=== PATIENT | male | born 1940 | race African-American/Black ===

== ENCOUNTER 2023-11-04 10:26 | Emergency (ER) | payer OTHER ==
[~2023-11-04] VITALS: Ht 180.3 cm; Wt 73.0 kg
[2023-11-04 10:28] VITALS: O2SAT 99
[2023-11-04 11:05] VITALS: TEMP 97.6
[2023-11-04 11:06] LABS: BASOPHILS % 0.3 % (0.0-2.0); EOSINOPHILS % 1.7 % (0.0-5.0); HEMATOCRIT. 28.8 % (42.0-52.0); HEMOGLOBIN. 9.2 g/dL (14.0-18.0); LYMPHOCYTES % 17.9 % (20.0-50.0); MEAN CORPUSCULAR HEMOGLOBIN 29.1 pg (28.0-32.0); MEAN CORPUSCULAR HGB CONC 32.1 g/dL (31.0-37.0); MEAN CORPUSCULAR VOLUME 90.8 fL (80.0-94.0); MEAN PLATELET VOLUME 7.2 fl (7.4-10.4); MONOCYTES % 7.6 % (2.0-8.0); NEUTROPHILS % 72.5 % (40.0-76.0); PLATELET 257 x1000/uL (130-400); RED BLOOD CELL COUNT 3.17 mill/uL (4.7-6.1); RED CELL DISTRIBUTION WIDTH 15.8 % (11.6-14.6); WHITE BLOOD COUNT 5.8 x1000/uL (4.5-11.0)
[2023-11-04 11:28] LABS: ALANINE AMINOTRANSFERASE < 7 IU/L (10-49); ALBUMIN 4.3 g/dL (3.2-4.8); ASPARTATE AMINOTRANSFERASE 15 IU/L (<34); BILIRUBIN TOTAL 0.2 mg/dL (0.1-1.0); CARBON DIOXIDE 26 mEq/L (21-32); CHLORIDE 102 mEq/L (98-107); CREATININE 1.3 mg/dL (0.6-1.3); GLUCOSE 143 mg/dL (70-105); POTASSIUM 4.5 mEq/L (3.5-5.1); PROTEIN TOTAL 7.1 g/dL (6.0-8.3); SODIUM 135 mEq/L (136-145); TROPONIN I HIGH SENSITIVITY 22 ng/L (3.0-53); UREA NITROGEN BLOOD 17 mg/dL (9-23)
[2023-11-04] MEDS: MORPHINE SULFATE 2 MG/ML CPJ (NOT FOR IM USE) IV ONE (12:15)
[2023-11-04 13:35] LABS: TROPONIN I HIGH SENSITIVITY 23 ng/L (3.0-53)
[2023-11-04 14:47] VITALS: BP 142/91; PULSE 91; RESP 15
== END 2023-11-04 14:53 | disposition short-term general hospital (02) ==
LOC: ER 10:43 → EDBEDREQ 10:52 → CANBEDREQ 12:23 → ER 14:53
DX: R07.89 Other chest pain (principal); R42 Dizziness and giddiness; R06.02 Shortness of breath; I48.91 Unspecified atrial fibrillation; E11.9 Type 2 diabetes mellitus without complications; I10 Essential (primary) hypertension; I25.2 Old myocardial infarction
CPT/HCPCS: 36415; 71045; 80053; 82962; 83880; 84484; 85025; 93005; 99285

== ENCOUNTER 2024-02-11 07:50 | Inpatient (IN) | payer OTHER ==
[~2024-02-11] VITALS: Ht 167.6 cm; Wt 57.4 kg
[2024-02-11 07:53] VITALS: O2SAT 100
[2024-02-11 08:35] LABS: BASOPHILS % 0.4 % (0.0-2.0); EOSINOPHILS % 1.3 % (0.0-5.0); HEMATOCRIT. 30.3 % (42.0-52.0); HEMOGLOBIN. 9.7 g/dL (14.0-18.0); LYMPHOCYTES % 9.3 % (20.0-50.0); MEAN CORPUSCULAR VOLUME 93.9 fL (80.0-94.0); MEAN PLATELET VOLUME 6.8 fl (7.4-10.4); MONOCYTES % 6.5 % (2.0-8.0); NEUTROPHILS % 82.5 % (40.0-76.0); PLATELET 307 x1000/uL (130-400); RED BLOOD CELL COUNT 3.23 mill/uL (4.7-6.1); RED CELL DISTRIBUTION WIDTH 15.4 % (11.6-14.6); WHITE BLOOD COUNT 6.4 x1000/uL (4.5-11.0)
[2024-02-11 08:47] LABS: CHLORIDE 102 mEq/L (98-107); POTASSIUM 4.7 mEq/L (3.5-5.1); SODIUM 136 mEq/L (136-145)
[2024-02-11 08:48] LABS: CARBON DIOXIDE 26 mEq/L (21-32)
[2024-02-11 08:49] LABS: CALCIUM 9.7 mg/dL (8.7-10.4)
[2024-02-11] MEDS: METOCLOPRAMIDE HCL 10MG/2ML VIAL IV ONE (08:52)
[2024-02-11 08:53] LABS: GLUCOSE 169 mg/dL (70-105); UREA NITROGEN BLOOD 16 mg/dL (9-23)
[2024-02-11] MEDS: KETOROLAC 30MG/ML VIAL IV ONE (08:53)
[2024-02-11 08:56] LABS: TROPONIN I HIGH SENSITIVITY 21 ng/L (3.0-53)
[2024-02-11 11:06] LABS: TROPONIN I HIGH SENSITIVITY 22 ng/L (3.0-53)
[2024-02-11] MEDS: METOPROLOL SUCCINATE 50MG ER TABLET PO STA (13:20)
[2024-02-11] MEDS ORDERED: AMLODIPINE 10MG TABLET PO ONE (14:45)
[2024-02-11] MEDS: AMLODIPINE 5MG TABLET PO NR (15:10)
[2024-02-11 20:00] VITALS: BP 172/82; PULSE 114; RESP 20; TEMP 98.1
[2024-02-11 20:18] VITALS: BP 172/82; PULSE 114; RESP 20; TEMP 98.1
[2024-02-11] MEDS ORDERED: METO25TA6 PO (20:28)
[2024-02-11] MEDS ORDERED: TERA2CAP4 MT (20:28)
[2024-02-11] MEDS ORDERED: CARSR60 PO (20:28)
[2024-02-11] MEDS ORDERED: DORZ10DR8 BOTHEYE (20:28)
[2024-02-11] MEDS ORDERED: ASPI-1079 PO (20:28)
[2024-02-11] MEDS ORDERED: APIX5TAB MT (20:28)
[2024-02-11] MEDS ORDERED: METF-414 MT (20:28)
[2024-02-11] MEDS ORDERED: CYAN-50 MT (20:28)
[2024-02-11] MEDS ORDERED: OMEP20CA14 MT (20:28)
[2024-02-11] MEDS ORDERED: NITR0.4T49 SL (20:28)
[2024-02-11] MEDS ORDERED: MAGN500C4 MT (20:28)
[2024-02-11] MEDS ORDERED: FURO20TA4 MT (20:28)
[2024-02-11] MEDS ORDERED: MONT-39 MT (20:28)
[2024-02-11] MEDS ORDERED: ATOR40TA70 MT (20:28)
[2024-02-11] MEDS ORDERED: GABA-529 MT (20:28)
[2024-02-11] MEDS ORDERED: LATA2.5D14 EACHEYE (21:28)
[2024-02-11] MEDS ORDERED: ONDANSETRON HCL 4MG/2ML INJ IV PRN (21:30)
[2024-02-11] MEDS ORDERED: MAGNESIUM/ALUMINUM HYDROXIDE/SIMETHICONE 30ML UDC PO PRN (21:30)
[2024-02-11] MEDS ORDERED: ACETAMINOPHEN 325MG TABLET PO PRN (21:30)
[2024-02-11] MEDS ORDERED: IPRATROPIUM/ALBUTEROL 0.5-3(2.5)MG/3ML NEB HHN PRN (21:30)
[2024-02-11] MEDS ORDERED: GUAIFENESIN 200MG/10ML SUGAR FREE UDC PO PRN (21:30)
[2024-02-11 22:10] VITALS: BP 165/87; PULSE 108
[2024-02-11] MEDS ORDERED: DEXTROSE 50% WATER 50ML SYRINGE IV PRN (22:15)
[2024-02-11] MEDS: ACETAMINOPHEN 325MG TABLET PO PRN (22:27)
[2024-02-11] MEDS: CLONIDINE 0.1MG TABLET PO PRN (22:27)
[2024-02-11] MEDS: DILTIAZEM HCL 60MG TABLET PO SCH (22:30)
[2024-02-11] MEDS: APIXABAN 5 MG TABLET PO SCH (22:30)
[2024-02-11] MEDS: METOPROLOL TARTRATE 25MG TABLET PO SCH (23:00)
[2024-02-11] MEDS: GABAPENTIN 100MG CAPSULE PO SCH (23:08)
[2024-02-11] MEDS: DOCUSATE SODIUM 100MG CAPSULE PO PRN (23:08)
[2024-02-11] MEDS: DORZOLAMIDE 2% OPHTH 10 ML BOTTLE BOTHEYE SCH (23:09)
[2024-02-12] VITALS: BP 108/64; PULSE 84; RESP 19; TEMP 97.9
[2024-02-12 00:42] LABS: HEMOGLOBIN 8.8 g/dL (14.0-18.0); MEAN CORPUSCULAR HGB CONC 32.7 g/dL (31.0-37.0); MEAN CORPUSCULAR VOLUME 91.7 fL (80.0-94.0); PLATELET 284 x1000/uL (130-400); RED BLOOD CELL COUNT 2.94 mill/uL (4.7-6.1); WHITE BLOOD COUNT 4.8 x1000/uL (4.5-11.0)
[2024-02-12 00:49] LABS: CHLORIDE 106 mEq/L (98-107); POTASSIUM 4.3 mEq/L (3.5-5.1); SODIUM 138 mEq/L (136-145)
[2024-02-12 00:50] LABS: CALCIUM 8.9 mg/dL (8.7-10.4); CARBON DIOXIDE 25 mEq/L (21-32)
[2024-02-12 00:55] LABS: CREATININE 0.9 mg/dL (0.6-1.3); GLUCOSE 121 mg/dL (70-105); TRIGLYCERIDE 79 mg/dL (0-150); TROPONIN I HIGH SENSITIVITY 39 ng/L (3.0-53); UREA NITROGEN BLOOD 12 mg/dL (9-23)
[2024-02-12 00:56] LABS: LDL CHOLESTEROL 58 mg/dL (5-100)
[2024-02-12 00:57] LABS: CHOLESTEROL 115 mg/dL (<200); CREATINE KINASE 20 IU/L (46-171); HDL CHOLESTEROL 37 mg/dL (>55); PHOSPHORUS 4.1 mg/dL (2.5-4.9)
[2024-02-12 00:59] LABS: T4 FREE 0.91 ng/dL (0.89-1.76); THYROID STIMULATING HORMONE 4.61 uIU/mL (0.55-4.78)
[2024-02-12 04:00] VITALS: BP 110/59; PULSE 81; RESP 18; TEMP 97.5
[2024-02-12 05:32] LABS: CHLORIDE 106 mEq/L (98-107); POTASSIUM 4.2 mEq/L (3.5-5.1); SODIUM 138 mEq/L (136-145)
[2024-02-12 05:33] LABS: CARBON DIOXIDE 25 mEq/L (21-32)
[2024-02-12 05:34] LABS: CALCIUM 9.4 mg/dL (8.7-10.4)
[2024-02-12 05:37] LABS: TROPONIN I HIGH SENSITIVITY 35 ng/L (3.0-53)
[2024-02-12 05:38] LABS: CREATININE 0.8 mg/dL (0.6-1.3); GLUCOSE 116 mg/dL (70-105)
[2024-02-12 05:39] LABS: UREA NITROGEN BLOOD 12 mg/dL (9-23)
[2024-02-12 05:40] LABS: CREATINE KINASE 23 IU/L (46-171)
[2024-02-12 05:41] LABS: PHOSPHORUS 4.3 mg/dL (2.5-4.9)
[2024-02-12 06:21] LABS: BASOPHILS % 0.6 % (0.0-2.0); EOSINOPHILS % 5.1 % (0.0-5.0); HEMATOCRIT. 27.5 % (42.0-52.0); HEMOGLOBIN. 9.1 g/dL (14.0-18.0); LYMPHOCYTES % 14.2 % (20.0-50.0); MEAN CORPUSCULAR HEMOGLOBIN 30.5 pg (28.0-32.0); MEAN CORPUSCULAR HGB CONC 33.1 g/dL (31.0-37.0); MEAN CORPUSCULAR VOLUME 92.1 fL (80.0-94.0); MEAN PLATELET VOLUME 7.1 fl (7.4-10.4); MONOCYTES % 10.6 % (2.0-8.0); NEUTROPHILS % 69.5 % (40.0-76.0); PLATELET 277 x1000/uL (130-400); RED BLOOD CELL COUNT 2.98 mill/uL (4.7-6.1); WHITE BLOOD COUNT 3.8 x1000/uL (4.5-11.0)
[2024-02-12] MEDS: BLOOD SUGAR DIAGNOSTIC STRIP TEST SCH (06:40)
[2024-02-12] MEDS: INSULIN LISPRO 100 UNITS/ML SUBCUT SCH (07:34)
[2024-02-12 08:00] VITALS: BP 126/69; PULSE 87; RESP 20; TEMP 98.1
[2024-02-12] MEDS: OMEPRAZOLE 20MG CAPSULE EXTENDED RELEASE PO SCH (08:51)
[2024-02-12] MEDS: FUROSEMIDE 20MG TABLET PO SCH (08:51)
[2024-02-12] MEDS: ASPIRIN 81MG TABLET PO SCH (08:51)
[2024-02-12] MEDS: CYANOCOBALAMIN 1000MCG TABLET PO SCH (08:51)
[2024-02-12 12:00] VITALS: BP 108/58; PULSE 74; RESP 17; TEMP 96.9
[2024-02-12 16:00] VITALS: BP 117/60; PULSE 80; RESP 18; TEMP 97.2
[2024-02-12] MEDS: MONTELUKAST SODIUM 10MG TABLET PO SCH (18:52)
[2024-02-12 20:00] VITALS: BP 112/67; PULSE 100; RESP 18; TEMP 97.2
[2024-02-12] MEDS: ATORVASTATIN CALCIUM 40MG TABLET PO SCH (21:07)
[2024-02-12] MEDS: LATANOPROST 0.005% OPHTH DROPS 2.5ML EACHEYE SCH (21:08)
[2024-02-12] MEDS: TERAZOSIN HCL 1MG CAPSULE PO SCH (21:15)
[2024-02-13] VITALS: BP 116/62; PULSE 64; RESP 18; TEMP 98.9
== END 2024-02-13 00:30 | disposition short-term general hospital (02) | DRG 305 ==
LOC: ER 07:50 → CANBEDREQ 11:14 → ER 17:57 → 7WST 18:39
PROVIDERS: ADMIT Preventive Medicine Clinical Informatics; ATTEND Preventive Medicine Clinical Informatics
DX: I16.0 Hypertensive urgency (principal); I20.0 Unstable angina; D64.9 Anemia, unspecified; E11.9 Type 2 diabetes mellitus without complications; I11.0 Hypertensive heart disease with heart failure; I50.9 Heart failure, unspecified; Z85.118 Personal history of other malignant neoplasm of bronchus and lung; I48.91 Unspecified atrial fibrillation; Z86.718 Personal history of other venous thrombosis and embolism; Z87.891 Personal history of nicotine dependence; Z95.828 Presence of other vascular implants and grafts; Z79.01 Long term (current) use of anticoagulants; Z79.82 Long term (current) use of aspirin; Z79.84 Long term (current) use of oral hypoglycemic drugs; Z79.899 Other long term (current) drug therapy
CPT/HCPCS: 36415; 71045; 80048; 80061; 82550; 82962; 83036; 83735; 83880; 84100; 84439; 84443; 84484; 85025; 85027; 93005; 93970; 99285; J1815; J1885; J2765

== ENCOUNTER 2024-02-22 08:05 | Emergency (ER) | payer OTHER ==
[~2024-02-22] VITALS: Ht 175.3 cm; Wt 69.0 kg
[~2024-02-22 08:05] MED LIST: APIX5TAB MT; ASPI-1079 PO; ATOR40TA70 MT; CARSR60 PO; CYAN-50 MT; DORZ10DR8 BOTHEYE; FURO20TA4 MT; GABA-529 MT; LATA2.5D14 EACHEYE; MAGN500C4 MT; METF-414 MT; METO25TA6 PO; MONT-39 MT; NITR0.4T49 SL; OMEP20CA14 MT; TERA2CAP4 MT
[2024-02-22 08:12] VITALS: BP 114/60; PULSE 105; RESP 18; TEMP 98.6; O2SAT 98
[2024-02-22 08:48] LABS: BASOPHILS % 0.4 % (0.0-2.0); EOSINOPHILS % 1.5 % (0.0-5.0); HEMATOCRIT. 29.2 % (42.0-52.0); HEMOGLOBIN. 9.3 g/dL (14.0-18.0); LYMPHOCYTES % 15.4 % (20.0-50.0); MEAN CORPUSCULAR HEMOGLOBIN 29.4 pg (28.0-32.0); MEAN PLATELET VOLUME 6.8 fl (7.4-10.4); MONOCYTES % 7.2 % (2.0-8.0); NEUTROPHILS % 75.5 % (40.0-76.0); PLATELET 315 x1000/uL (130-400); RED BLOOD CELL COUNT 3.17 mill/uL (4.7-6.1); RED CELL DISTRIBUTION WIDTH 14.9 % (11.6-14.6); WHITE BLOOD COUNT 7.4 x1000/uL (4.5-11.0)
[2024-02-22 08:50] LABS: CARBON DIOXIDE 24 mEq/L (21-32); CHLORIDE 104 mEq/L (98-107); POTASSIUM 4.2 mEq/L (3.5-5.1); SODIUM 137 mEq/L (136-145)
[2024-02-22 08:51] LABS: CALCIUM 9.9 mg/dL (8.7-10.4)
[2024-02-22 08:55] LABS: CREATININE 1.1 mg/dL (0.6-1.3)
[2024-02-22 08:56] LABS: GLUCOSE 199 mg/dL (70-105); UREA NITROGEN BLOOD 23 mg/dL (9-23)
[2024-02-22 08:57] LABS: ALANINE AMINOTRANSFERASE < 7 IU/L (10-49); ASPARTATE AMINOTRANSFERASE 18 IU/L (<34)
[2024-02-22 08:58] LABS: BILIRUBIN TOTAL 0.2 mg/dL (0.1-1.0); PROTEIN TOTAL 6.6 g/dL (6.0-8.3)
[2024-02-22 10:50] LABS: BILIRUBIN DIRECT < 0.1 mg/dL (<=3.0)
[2024-02-22] MEDS ORDERED: POLY119P2 MT (14:34)
[2024-02-22] MEDS ORDERED: FEO PR (14:34)
== END 2024-02-22 14:55 | disposition home or self-care (01) ==
LOC: ER 08:05
DX: K59.00 Constipation, unspecified (principal); I25.2 Old myocardial infarction; I10 Essential (primary) hypertension; E11.9 Type 2 diabetes mellitus without complications; I48.91 Unspecified atrial fibrillation; Z88.5 Allergy status to narcotic agent; Z79.899 Other long term (current) drug therapy
CPT/HCPCS: 36415; 74018; 74176; 80048; 80076; 85025; 99284

== ENCOUNTER 2024-03-02 20:20 | Emergency (ER) | payer OTHER ==
[~2024-03-02] VITALS: Ht 170.2 cm; Wt 59.0 kg
[~2024-03-02 20:20] MED LIST changes: +FEO PR; +POLY119P2 MT
[2024-03-02 20:42] VITALS: O2SAT 95
[2024-03-02] MEDS: SODIUM CHLORIDE 0.9% 1,000 ML IV ONE (21:55)
[2024-03-02] MEDS: ACETAMINOPHEN 325MG TABLET PO ONE (21:55)
[2024-03-02] MEDS: ONDANSETRON HCL 4MG/2ML INJ IV STA (21:55)
[2024-03-02 21:57] LABS: BASOPHILS % 0.5 % (0.0-2.0); EOSINOPHILS % 1.9 % (0.0-5.0); HEMATOCRIT. 30.1 % (42.0-52.0); HEMOGLOBIN. 9.7 g/dL (14.0-18.0); LYMPHOCYTES % 18.8 % (20.0-50.0); MEAN CORPUSCULAR HEMOGLOBIN 29.7 pg (28.0-32.0); MEAN CORPUSCULAR HGB CONC 32.1 g/dL (31.0-37.0); MEAN CORPUSCULAR VOLUME 92.6 fL (80.0-94.0); MONOCYTES % 10.9 % (2.0-8.0); NEUTROPHILS % 67.9 % (40.0-76.0); PLATELET 305 x1000/uL (130-400); RED BLOOD CELL COUNT 3.26 mill/uL (4.7-6.1); RED CELL DISTRIBUTION WIDTH 15.1 % (11.6-14.6); WHITE BLOOD COUNT 6.4 x1000/uL (4.5-11.0)
[2024-03-02 22:03] LABS: CHLORIDE 110 mEq/L (98-107); POTASSIUM 3.5 mEq/L (3.5-5.1); SODIUM 142 mEq/L (136-145)
[2024-03-02 22:04] LABS: CARBON DIOXIDE 22 mEq/L (21-32)
[2024-03-02 22:05] LABS: CALCIUM 7.8 mg/dL (8.7-10.4)
[2024-03-02 22:06] LABS: D-DIMER 3.65 mg/L FEU (<0.50); PARTIAL THROMBOPLASTIN TIME 25.5 sec (23.4-31.0); PROTHROMBIN TIME 10.8 sec (9.6-11.0)
[2024-03-02 22:09] LABS: CREATININE 0.7 mg/dL (0.6-1.3); GLUCOSE 93 mg/dL (70-105)
[2024-03-02 22:10] LABS: TROPONIN I HIGH SENSITIVITY 23 ng/L (3.0-53); UREA NITROGEN BLOOD 18 mg/dL (9-23)
[2024-03-02 22:11] LABS: ALANINE AMINOTRANSFERASE < 7 IU/L (10-49); ASPARTATE AMINOTRANSFERASE 14 IU/L (<34)
[2024-03-02 22:12] LABS: BILIRUBIN TOTAL 0.2 mg/dL (0.1-1.0); PROTEIN TOTAL 4.9 g/dL (6.0-8.3)
[2024-03-02] MEDS ORDERED: LEVOFLOXACIN 750MG PREMIX 150 ML IV ONE (22:30)
[2024-03-02] MEDS: IOHEXOL-350 100 ML BOTTLE ONE (23:37)
[2024-03-02] MEDS: SODIUM CHLORIDE 0.9% 1000ML BAG (SEPSIS BOLUS) IV ONE (23:50)
[2024-03-03] MEDS: LEVOFLOXACIN 500MG PREMIX 150 ML IV NR (02:21)
[2024-03-03 02:30] VITALS: BP 171/86; PULSE 97; RESP 20; TEMP 98.9
[2024-03-03 02:35] LABS: CLARITY URINE CLEAR (CLEAR); COLOR URINE YELLOW (YELLOW); GLUCOSE URINE NEGATIVE (NEGATIVE); KETONES URINE 1+ (NEGATIVE); LEUKOCYTE ESTERASE URINE NEGATIVE (NEGATIVE); NITRITE URINE NEGATIVE (NEGATIVE); OCCULT BLOOD URINE NEGATIVE (NEGATIVE); PH URINE 6.5 (4.5-8.0); PROTEIN URINE NEGATIVE (NEGATIVE); SPECIFIC GRAVITY URINE 1.041 (1.005-1.030); UROBILINOGEN URINE 0.2 E.U./dL (0.2-1.0)
== END 2024-03-03 03:00 | disposition short-term general hospital (02) ==
LOC: ER 20:20
DX: J18.9 Pneumonia, unspecified organism (principal); R06.02 Shortness of breath; R10.13 Epigastric pain; E11.9 Type 2 diabetes mellitus without complications; I12.0 Hypertensive chronic kidney disease with stage 5 chronic kidney disease or end stage renal disease; Z85.118 Personal history of other malignant neoplasm of bronchus and lung; Z88.5 Allergy status to narcotic agent; Z88.8 Allergy status to other drugs, medicaments and biological substances; Z20.822 Contact with and (suspected) exposure to COVID-19
CPT/HCPCS: 99285; 71275; 96361; 71045; 96375; 80053; 83880; 83605; 83690; 85025; 85379; 85610; 85730; 87040; 84484; 36415; 74176; 93005; 96365; 87426; 81003; 87086; Q9967; J2405; J7030; J1956